=== PATIENT | female | born 1965 | race American Indian/Alaskan Native ===

== ENCOUNTER 2021-11-22 15:56 | Inpatient (IN) ==
[2021-11-22] MEDS ORDERED: LACTATED RINGERS 1,000 ML IV ONE (16:30)
[2021-11-22] MEDS ORDERED: HYDROmorphone 1 MG/1 ML SYRINGE IV STA (16:30)
[2021-11-22] MEDS ORDERED: ONDANSETRON 4 MG/2 ML VIAL IV ONE (16:30)
[2021-11-22] MEDS ORDERED: HYDROmorphone 1 MG/1 ML SYRINGE IV PRN (16:32)
[2021-11-22] MEDS ORDERED: ACETAMINOPHEN 325 MG TABLET PO PRN (16:32)
[2021-11-22] MEDS ORDERED: ONDANSETRON 4 MG/2 ML VIAL IV PRN (16:32)
[2021-11-22] MEDS ORDERED: GLUCAGON 1 MG VIAL IM PRN (16:56)
[2021-11-22] MEDS ORDERED: MAGNESIUM SULF RIDER 4 GM/100 ML PREMIX IV PRN (16:57)
[2021-11-22] MEDS ORDERED: MAGNESIUM SULF RIDER 2 GM/50 ML PREMIX IV PRN (16:57)
[2021-11-22] MEDS ORDERED: DEXTROSE 10% 250 ML BAG IV PRN (17:01)
[2021-11-22] MEDS: PIPERACILLIN/TAZOBACTAM 3,375 MG in SODIUM CHLORIDE 0.9% 100 ML IV SCH (18:07)
[2021-11-22 18:22] LABS: Calcium 9.7 MG/DL (8.5-10.1); Osmolality,Calculated 279.5 MOS/KG (273-304)
[2021-11-22] MEDS: LACTATED RINGERS 1,000 ML IV SCH (19:12)
[2021-11-22] MEDS: INSULIN REGULAR 100 UNIT/ML SUBCUT SCH (20:44)
[2021-11-22] MEDS: ENOXAPARIN 40 MG/0.4 ML SYRINGE SUBCUT SCH (20:45)
[2021-11-22] MEDS: POTASSIUM CHLORIDE 20 MEQ TABLET PO PRN ×2 (20:45→22:31)
[2021-11-22 22:18] LABS: Basophils % 0.2 % (0.0-0.8); Hematocrit 38.8 VOL% (35.7-47.0); Hemoglobin 13.1 GM/DL (12.0-16.0); Lymphocytes # 0.7 10*3/uL (1.4-4.0); Lymphocytes % 3.3 % (21.3-54.2); Mean Corpuscular HGB Conc 33.8 GM/DL (32-36); Mean Corpuscular Volume 91.1 FL (87-102); Mean Platelet Volume 11.1 FL (9.6-12.0); Monocytes # 0.8 10*3/uL (0.11-0.8); Monocytes % 3.7 % (1.7-12.7); Neutrophils % 91.8 % (38.7-73.9); Platelet Count 121 T/CUMM (130-400); Red Blood Count 4.26 MC/CUMM (3.8-5.5); Red Cell Distribution Width 13.5 % (9.3-17.3); White Blood Count 20.7 T/CUMM (4-12)
[2021-11-22 22:41] LABS: Band Neutrophils 3 % (0-10); Lymphocytes 3 % (20-55); Total Cells Counted 100
[2021-11-22 22:42] LABS: Platelet Estimate Adequate
[2021-11-23] MEDS: POTASSIUM CHLORIDE 20 MEQ TABLET PO PRN ×2 (00:26→02:08)
[2021-11-23] MEDS: PIPERACILLIN/TAZOBACTAM 3,375 MG in SODIUM CHLORIDE 0.9% 100 ML IV SCH ×3 (02:09→16:44)
[2021-11-23 05:45] LABS: Basophils % 0.2 % (0.0-0.8); Eosinophils % 0.2 % (0.00-10.9); Hematocrit 40.6 VOL% (35.7-47.0); Hemoglobin 13.3 GM/DL (12.0-16.0); Immature Granulocytes % 0.8 %; Immature Granulocytes Absolute 0.15 #; Lymphocytes # 0.8 10*3/uL (1.4-4.0); Lymphocytes % 4.2 % (21.3-54.2); Mean Corpuscular HGB Conc 32.8 GM/DL (32-36); Mean Corpuscular Volume 93.3 FL (87-102); Mean Platelet Volume 11.4 FL (9.6-12.0); Monocytes # 0.6 10*3/uL (0.11-0.8); Neutrophils % 91.6 % (38.7-73.9); Platelet Count 129 T/CUMM (130-400); Red Blood Count 4.35 MC/CUMM (3.8-5.5); Red Cell Distribution Width 13.7 % (9.3-17.3); White Blood Count 18.8 T/CUMM (4-12)
[2021-11-23 06:02] LABS: Albumin 2.4 G/DL (3.4-5.0); Bilirubin,Total 0.9 MG/DL (0.20-1.00); Calcium 8.6 MG/DL (8.5-10.1); Osmolality,Calculated 289.3 MOS/KG (273-304); Total Protein 6.8 G/DL (6.4-8.2)
[2021-11-23] MEDS ORDERED: ACETAMINOPHEN INJ 0 MG/0 ML VIAL IV ONE (06:20)
[2021-11-23] MEDS ORDERED: LIDOCAINE 2% 5 ML VIAL ONE (06:20)
[2021-11-23] MEDS ORDERED: propofoL 200 MG/20 ML VIAL IV ONE (06:20)
[2021-11-23] MEDS ORDERED: fentaNYL 100 MCG/2 ML VIAL ONE (06:21)
[2021-11-23] MEDS ORDERED: ONDANSETRON 4 MG/2 ML VIAL ONE (06:21)
[2021-11-23] MEDS ORDERED: ROCURONIUM 50 MG/5 ML VIAL IV ONE (06:21)
[2021-11-23] MEDS ORDERED: TISSUE ADHESIVE 1 EACH APPLICATOR TOP ONE (06:45)
[2021-11-23] MEDS ORDERED: LIDOCAINE 1%/EPI INJ 20 ML VIAL ONE (06:45)
[2021-11-23] MEDS ORDERED: BUPIVACAINE MPF 0.25% 10 ML VIAL ONE (06:45)
[2021-11-23] MEDS ORDERED: KETOROLAC 0.5% OPH SOLN 5 ML BOTTLE RIGHT EYE PRN (07:07)
[2021-11-23 07:16] LABS: Lymphocytes 4 % (20-55); Platelet Estimate Normal; Total Cells Counted 100
[2021-11-23] MEDS ORDERED: ACETAMINOPHEN INJ 1,000 MG/100 ML VIAL IV ONE (07:38)
[2021-11-23] MEDS ORDERED: DESFLURANE 1 UNIT/15 MINUTE INH ONE (08:05)
[2021-11-23] MEDS ORDERED: GLYCOPYRROLATE 0.4 MG/2 ML VIAL ONE (08:29)
[2021-11-23] MEDS ORDERED: NEOSTIGMINE 10 MG/10 ML VIAL ONE (08:29)
[2021-11-23] MEDS: INSULIN REGULAR 100 UNIT/ML SUBCUT SCH ×4 (08:55→20:12)
[2021-11-23] MEDS: DOCUSATE SODIUM 100 MG CAPSULE PO SCH ×2 (10:40→20:14)
[2021-11-23] MEDS: GABAPENTIN 300 MG CAPSULE PO SCH ×3 (10:40→20:14)
[2021-11-23] MEDS: PANTOPRAZOLE 40 MG TABLET PO SCH (10:40)
[2021-11-23] MEDS: amLODIPine 5 MG TABLET PO SCH (11:23)
[2021-11-23] MEDS: LUBIPROSTONE 24 MCG CAPSULE PO SCH ×2 (11:23→16:45)
[2021-11-23] MEDS: LACTATED RINGERS 1,000 ML IV SCH ×3 (13:14→19:00)
[2021-11-23] MEDS: ENOXAPARIN 40 MG/0.4 ML SYRINGE SUBCUT SCH (20:14)
[2021-11-24] MEDS: PIPERACILLIN/TAZOBACTAM 3,375 MG in SODIUM CHLORIDE 0.9% 100 ML IV SCH (00:24)
[2021-11-24] MEDS: LACTATED RINGERS 1,000 ML IV SCH (01:00)
[2021-11-24 06:56] LABS: Basophils # 0.1 10*3/uL (0.0-0.2); Basophils % 0.3 % (0.0-0.8); Eosinophils # 0.2 10*3/uL (0.0-0.87); Eosinophils % 1.3 % (0.00-10.9); Hematocrit 35.4 VOL% (35.7-47.0); Hemoglobin 11.4 GM/DL (12.0-16.0); Immature Granulocytes % 0.8 %; Immature Granulocytes Absolute 0.12 #; Lymphocytes # 0.9 10*3/uL (1.4-4.0); Lymphocytes % 6.5 % (21.3-54.2); Mean Corpuscular HGB Conc 32.2 GM/DL (32-36); Mean Corpuscular Volume 93.9 FL (87-102); Mean Platelet Volume 12.1 FL (9.6-12.0); Monocytes # 0.9 10*3/uL (0.11-0.8); Monocytes % 6.5 % (1.7-12.7); Neutrophils % 84.6 % (38.7-73.9); Platelet Count 127 T/CUMM (130-400); Red Blood Count 3.77 MC/CUMM (3.8-5.5); Red Cell Distribution Width 14.3 % (9.3-17.3); White Blood Count 14.4 T/CUMM (4-12)
[2021-11-24 07:30] LABS: Calcium 8.1 MG/DL (8.5-10.1); Osmolality,Calculated 280.8 MOS/KG (273-304); Potassium 3.8 MMOL/L (3.5-5.1)
[2021-11-24] MEDS ORDERED: CEFUROXIME 500 MG TABLET PO SCH (08:00)
[2021-11-24] MEDS: DOCUSATE SODIUM 100 MG CAPSULE PO SCH (08:53)
[2021-11-24] MEDS: PANTOPRAZOLE 40 MG TABLET PO SCH (08:53)
[2021-11-24] MEDS: LUBIPROSTONE 24 MCG CAPSULE PO SCH (08:53)
[2021-11-24] MEDS: GABAPENTIN 300 MG CAPSULE PO SCH (08:53)
[2021-11-24] MEDS: amLODIPine 5 MG TABLET PO SCH (09:49)
[2021-11-24] MEDS: INSULIN REGULAR 100 UNIT/ML SUBCUT SCH ×2 (09:49→12:03)
[2021-11-24 11:44] VITALS: BP 100/43
== END 2021-11-24 14:00 | disposition home or self-care (01) | DRG 339 ==
LOC: EDUNIT# → N.ED 15:56 → N.EDINP 15:56 → N.3E 17:38
PROVIDERS: ADMIT Surgery; ATTEND Surgery